=== PATIENT | female | born 1960 | race Caucasian/White ===

== ENCOUNTER 2020-08-15 10:00 | Observation (INO) ==
[2020-08-15] MEDS ORDERED: Naloxone 0.4 MG/ML INJ IVP PRN (10:48)
[2020-08-15] MEDS: Apixaban 5 MG TABLET PO SCH (20:27)
[2020-08-16] MEDS: hydroCHLOROthiazide 25 MG TABLET PO SCH (07:42)
[2020-08-16] MEDS: Apixaban 5 MG TABLET PO SCH ×2 (07:42→20:46)
[2020-08-16] MEDS: lisinopriL 5 MG TABLET PO SCH (07:42)
[2020-08-17] MEDS: Apixaban 5 MG TABLET PO SCH (09:04)
[2020-08-17] MEDS: lisinopriL 5 MG TABLET PO SCH (09:04)
[2020-08-17] MEDS: hydroCHLOROthiazide 25 MG TABLET PO SCH (09:05)
[2020-08-17 12:31] VITALS: BP 123/63
== END 2020-08-17 13:15 | disposition home or self-care (01) ==
LOC: 3BNU
PROVIDERS: ADMIT Internal Medicine Clinical Cardiac Electrophysiology; ATTEND Internal Medicine Clinical Cardiac Electrophysiology

== ENCOUNTER 2021-05-05 16:41 | Observation (INO) ==
[2021-05-05] MEDS ORDERED: Naloxone 0.4 MG/ML INJ IVP PRN (20:08)
[2021-05-05 22:30] LABS: BUN/Creatinine Ratio 23 (6-26); Blood Urea Nitrogen 24 mg/dL (8-23); Calcium 9.1 mg/dL (8.6-10.3); Carbon Dioxide 22 mEq/L (23-29); Chloride 106 mEq/L (98-107); Glucose 137 mg/dL (70-105); Magnesium 1.8 mg/dL (1.6-2.6); Osmolality,Calculated 286 (280-300); Phosphorous 2.6 mg/dL (2.7-4.5); Potassium 4.5 mEq/L (3.5-5.1); Sodium 135 mEq/L (136-145); eGFR For African Americans > 60 (> 60); eGFR For Non-African Americans 53 (> 60)
[2021-05-06 06:33] LABS: BUN/Creatinine Ratio 21 (6-26); Blood Urea Nitrogen 21 mg/dL (8-23); Carbon Dioxide 24 mEq/L (23-29); Chloride 109 mEq/L (98-107); Glucose 107 mg/dL (70-105); Osmolality,Calculated 287 (280-300); Potassium 4.3 mEq/L (3.5-5.1); Sodium 137 mEq/L (136-145); eGFR For African Americans > 60 (> 60); eGFR For Non-African Americans 55 (> 60)
[2021-05-06] MEDS: Apixaban 5 MG TABLET PO SCH ×2 (09:02→21:29)
[2021-05-06] MEDS ORDERED: Apixaban 5 MG TABLET PO SCH (21:00)
[2021-05-07 07:06] LABS: BUN/Creatinine Ratio 19 (6-26); Blood Urea Nitrogen 19 mg/dL (8-23); Calcium 9.3 mg/dL (8.6-10.3); Carbon Dioxide 28 mEq/L (23-29); Chloride 108 mEq/L (98-107); Glucose 104 mg/dL (70-105); Osmolality,Calculated 293 (280-300); Potassium 4.2 mEq/L (3.5-5.1); Sodium 140 mEq/L (136-145); eGFR For African Americans > 60 (> 60); eGFR For Non-African Americans 56 (> 60)
[2021-05-07] MEDS ORDERED: BuPROPion XL (24 HR) 150 MG TABLET PO SCH (09:00)
[2021-05-07] MEDS: Apixaban 5 MG TABLET PO SCH (09:25)
[2021-05-07 09:31] VITALS: TEMP 97.9
[2021-05-07 11:10] VITALS: BP 126/66; PULSE 51; O2SAT 98
[2021-05-07 12:38] LABS: Basophils % 0.4 %; Eosinophils % 0.4 %; Hemoglobin 11.1 g/dL (11.5-15.4); Immature Granulocytes % 0.3 % (0-4); Lymphocytes # 2.1 K/mcL (0.6-4.6); Mean Corpuscular HGB Conc 33.6 g/dL (31.6-35.5); Mean Corpuscular Hemoglobin 32.6 pg (28.0-33.3); Mean Corpuscular Volume 96.8 fL (83.0-100.0); Mean Platelet Volume 10.1 fL (9.4-12.4); Monocytes # 0.4 K/mcL (0.0-1.3); Monocytes % 5.5 %; Neutrophils # 5.3 K/mcL (1.6-8.9); Platelet Count 282 K/mcL (140-400); Red Blood Count 3.41 M/mcL (3.82-4.97); Red Cell Distribution Width 13.2 % (11.5-14.5); Segmented Neutrophils % 66.4 %; White Blood Count 7.9 K/mcL (4.3-11.1)
== END 2021-05-07 17:15 | disposition home or self-care (01) ==
LOC: 2NNU → SUATTDRO 18:43 → 3NENU 05-06 18:28
PROVIDERS: ADMIT Internal Medicine; ATTEND Internal Medicine